=== PATIENT | female | born 1970 | race Caucasian/White ===

== ENCOUNTER 2025-05-28 02:34 | Emergency (ER) | payer OTHER ==
[2025-05-28 03:17] LABS: Absolute Lymphocytes (CBC) 1.7 K/uL (0.7-4.9); Hematocrit 38.0 % (36.0-45.0); Hemoglobin 13.0 g/dL (12.0-15.0); MCH 29.3 pg (27.0-35.0); MCHC 34.2 g/dL (32.0-36.0); MCV 85.7 fL (80-100); MPV 7.1 fL (7.6-11.3); Nucleated RBC Absolute Count 0.0 (0-0); Nucleated Red Blood Cells % 0.1 % (0-0); RBC Red Blood Cell Count 4.43 M/uL (3.86-4.86); White Blood Count 9.60 thou/uL (4.3-10.9)
[2025-05-28 03:27] LABS: PT Prothrombin Time 12.3 SECONDS (10-13.0); PTT, Activated Partial Thromb 53.8 SECONDS (27.2-37.4); Protime INR 1.09
[2025-05-28 03:35] LABS: ALT/SGPT 18 U/L (13-56); AST/SGOT 13 U/L (15-37); Albumin 3.4 g/dL (3.4-5.0); Albumin/Globulin Ratio 0.9 (1.1-1.8); Alkaline Phosphatase 58 U/L (45-117); Anion Gap 7.3 mEq/L (5.0-15.0); BUN Blood Urea Nitrogen 10 mg/dL (7-18); Bilirubin Indirect, Calculated 0.4 mg/dL (0.2-0.8); Globulin 3.7 g/dL (2.3-3.5); Glucose Level 85 mg/dL (74-106); Potassium 3.3 mEq/L (3.5-5.1)
[2025-05-28 03:57] LABS: METHAMPHETAM NEGATIVE (NEGATIVE); THC Cannibis NEGATIVE (NEGATIVE)
--- NOTE | 2025-05-28 04:26 | ER ---
Nurse's Notes [facility] Name: Valarie Gonzalez Age: 54 yrs Sex: Female : 1970 Arrival Date: 05/28/2025 Time: 02:34 Bed 17 Private MD: Diagnosis: Suicidal ideations Presentation: 05/28 02:35 Chief complaint: EMS states: EMS initially toned out for "not feeling well." Upon EMS kd4 assessment, patient experiencing manic highs and lows, stating she "wants to stand up and run into traffic.". 02:35 Coronavirus screen: At this time, the client does not indicate any symptoms associated kd4 with coronavirus-19. Ebola Screen: No symptoms or risks identified at this time. Risk Assessment: Do you want to hurt yourself or someone else? Patient reports desire/thoughts of hurting themselves or someone else. Provider notified. Onset of symptoms was May 28, 2025. 02:35 Method Of Arrival: EMS: [facility] kd4 02:35 Acuity: SONNY 2 kd4 02:35 Initial Sepsis Screen: Does the patient meet any 2 criteria? No. Patient's initial kd4 sepsis screen is negative. Does the patient have a suspected source of infection? No. Patient's initial sepsis screen is negative. Triage Assessment: 02:35 General: Appears distressed, comfortable, Behavior is cooperative, manic high, kd4 hyperverbal. Pain: Complains of pain in generalized. EENT: No signs and/or symptoms were reported regarding the EENT system. Neuro: Level of Consciousness is awake, alert, obeys commands, Oriented to person, place, time, situation. Cardiovascular: Capillary refill < 3 seconds Patient's skin is warm and dry. Respiratory: Airway is patent Respiratory effort is even, unlabored, Respiratory pattern is regular, symmetrical. GI: No signs and/or symptoms were reported involving the gastrointestinal system. : No signs and/or symptoms were reported regarding the genitourinary system. Derm: Rash noted that is red, on groin and left leg Reports rash to perianal area and bilateral inner thighs due to laundry detergent. Musculoskeletal: Circulation, motion, and sensation intact. Range of motion: intact in all extremities. 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 - Infectious Disease History:: Denies. - Social history:: Smoking status: Patient reports the use of cigarette tobacco products, smokes one pack cigarettes per day. Screenin:35 [facility] ED Fall Risk Assessment (Adult) History of falling in the last 3 months, kd4 including since admission No falls in past 3 months (0 pts) Confusion or Disorientation No (0 pts) Intoxicated or Sedated No (0 pts) Impaired Gait No (0 pts) Mobility Assist Device Used No (0 pt) Altered Elimination No (0 pt) Score/Fall Risk Level 0 - 2 = Low Risk Oriented to surroundings, Maintained a safe environment, Hourly rounding (assess needs \\T\\ fall precautionary measures) done. 02:35 Abuse screen: Denies threats or abuse. Denies injuries from another. Nutritional kd4 screening: No deficits noted. Tuberculosis screening: No symptoms or risk factors identified. Assessment: 02:35 Reassessment: see triage assessment. kd4 03:17 Reassessment: No changes from previously documented assessment. Patient and/or family kd4 updated on plan of care and expected duration. Pain level reassessed. Patient is alert, oriented x 3, equal unlabored respirations, skin warm/dry/pink. 04:05 General: Patient in bed sleeping, sitter at bedside. kd4 06:07 General: Patient in bed sleeping, sitter at bedside.. kd4 06:37 General: Report Given to [facility] doctor [facility] kd4 is Yonny 07:04 General: Gus made aware of perineal rash. kd4 07:05 General: Hand off given to CARLOS ENRIQUE Gomez/ CARLOS ENRIQUE Lara. kd4 07:15 General: Assumed care of patient at this time. Pt resting comfortably. Updated on plan cm10 of care. Pt A\\T\\Ox4 at this time. Pt denying any SI. . Psych: 03:19 [place] Suicide Severity Screening: In the past month, have you wished you were kd4 or wished you could go to sleep and not wake up? Patient responds "yes." "In the past month, have you actually had any thoughts of killing yourself?" Patient responds "yes." "In your lifetime, have you ever done anything, started to do anything, or prepared to do anything to end your life?" Patient responds "yes." Patient reports suicidal intent occurred greater than 3 months prior. Subjective: Patient's mood is elevated, Delusions are denied, Hallucinations are denied Having thoughts of suicide. Objective: Patient is cooperative, hyperactive and hyperverbal Speech is normal, loud, Affect is appropriate. Interventions: Removed personal items and placed in bag. Searched person for dangerous items. Urine collected and sent for urine drug test. Belonging list filled out. Safety Checks: Personal items have been removed. Door is open. Pt denies substance abuse. Commitment: Patient will be a voluntary commitment. Vital Signs: 02:35 BP 98 / 63; Pulse 59; Resp 20; Temp 98.3; Pulse Ox 99% on R/A; Weight 80.74 kg; Height kd4 5 ft. 0 in. ; 07:25 BP 115 / 72; Pulse 51; Resp 16; Temp 97; Pulse Ox 96% on R/A; af3 02:35 Body Mass Index 34.76 (80.74 kg, 152.4 cm) kd4 ED Course: 02:35 Patient arrived in ED. kd4 02:35 Arm band placed on right wrist. Patient placed in the treatment room, in view of staff 4 members, on pulse oximetry. 02:35 Patient has correct armband on for positive identification. Bed in low position. Call kd4 light in reach. Side rails up X2. Valuables inventory done. Locked in safe. See valuables checklist. Provided Education on: plan of care. 02:41 Bill Bauman DO is Attending Physician. tt7 02:47 Assisted provider with: perianal inspection, patient c/o burning sensation to perianal al5 area after patients clothes were washed with detergent. 02:52 Viktor Sweet, CARLOS ENRIQUE is Primary Nurse. kd4 03:00 Inserted saline lock: 20 gauge in right antecubital area, using aseptic technique. kd4 Blood collected. Flushed with 10 mL NS. 03:05 Triage completed. kd4 07:30 Report given to Leonel with [facility] who assumes care of patient. cm10 07:30 IV discontinued, intact, bleeding controlled, No redness/swelling at site. Pressure cm10 dressing applied. Administered Medications: 03:33 Drug: Droperidol IVP 2.5 mg IVP once Route: IVP; Site: right antecubital; kd4 05:34 Follow up: Response: No adverse reaction kd4 07:04 Not Given (NOT AVAILABLEe): hydrocortisone Cream 0.2 % 1 application Topical once kd4 Medication: 02:35 VIS not applicable for this client. kd4 Outcome: 04:26 ER care complete, transfer ordered by . tt7 07:30 Transferred by ground EMS [facility]. to other acute care facility: [address] 07:30 Condition: stable 07:30 Instructed on the need for transfer, 07:36 Patient left the ED. cm10 Signatures: Patricia Hammond RN RN cm10 Viktor Sweet RN RN kd4 Gricelda cMcord RN RN al5 Jane Leavitt RN RN af3 Bill Bauman, DO tt7 Corrections: (The following items were deleted from the chart) 03:26 02:35 Derm: Rash noted that is red, on groin and left leg Reports rash to perianal area al5 and bilateral inner thighs kd4
--- NOTE | 2025-05-28 04:26 | EDPHYS ---
Physician Documentation [facility] Name: Valarie Gonzalez Age: 54 yrs Sex: Female : 1970 Arrival Date: 05/28/2025 Time: 02:34 Bed 17 Private MD: ED Physician Bill Bauman HPI: 05/28 05:51 This 54 yrs old Female presents to ER via EMS with complaints of Suicidal Ideation. tt7 05:51 Patient reports suicidal ideations with plans to break both of her legs, she reports tt7 history of past suicidal ideation with plan to starving herself to . She has past history of depression, schizoaffective disorder, bipolar disorder. She denies homicidal ideations. She denies auditory or visual hallucinations. She denies alcohol or drug abuse. 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 - Infectious Disease History:: Denies. - Social history:: Smoking status: Patient reports the use of cigarette tobacco products, smokes one pack cigarettes per day. ROS: 05:52 Constitutional: negative for fever. Cardiovascular: negative for chest pain. tt7 Respiratory: negative for shortness of breath. Abdomen/GI: negative for abdominal pain, nausea, vomiting, diarrhea. MS/Extremity: negative for injury and deformity. Neuro: negative for focal weakness. Exam: 05:52 Constitutional: vital signs reviewed, well appearing. Head/Face: normocephalic, tt7 atraumatic. Eyes: no conjunctival injection, anicteric sclerae. ENT: mucus membranes moist. Neck: trachea midline, no JVD, no meningismus. Cardiovascular: regular rate and rhythm, no murmurs, no rubs, no lower extremity edema. Respiratory: normal respiratory effort, no accessory muscle use, lungs CTAB. Abdomen/GI: soft, nondistended, nontender, no guarding or rebound, negative Ayala's sign, no McBurney point tenderness. Back: normal ROM. MS/ Extremity: normal ROM of extremities, no gross deformities. Neuro: alert and oriented with appropriate mental status, normal speech, follows commands, no focal neurologic deficits. 05:52 Psych: Behavior/mood is cooperative, Affect is animated, Oriented to person, place, time, Patient having thoughts of suicide. Judgement / Insight is impaired. Memory is normal. Delusions/hallucinations are not present. Vital Signs: 02:35 BP 98 / 63; Pulse 59; Resp 20; Temp 98.3; Pulse Ox 99% on R/A; Weight 80.74 kg; Height kd4 5 ft. 0 in. ; 07:25 BP 115 / 72; Pulse 51; Resp 16; Temp 97; Pulse Ox 96% on R/A; af3 02:35 Body Mass Index 34.76 (80.74 kg, 152.4 cm) kd4 MDM: 02:41 Medical Screening Exam initiated tt7 05:53 Differential diagnosis: drug withdrawal. acute psychotic break, depression, psychosis tt7 secondary to non-compliance. Data reviewed: vital signs, nurses notes, lab test result(s), Beta HCG: CBC, drug level(s), acetaminophen, alcohol, salicylate, electrolytes, hepatic panel, urine drug screen, EKG. I considered the following discharge prescriptions or medication management in the emergency department Antibiotics: At this time antibiotics are not recommended, Pain Medications: At this time, prescription pain medications are not recommended, Medications were administered in the Emergency Department. See MAR. Care significantly affected by the following chronic conditions: Depression, schizoaffective disorder, bipolar disorder. Counseling: I had a detailed discussion with the patient and/or guardian regarding the historical points, exam findings, and any diagnostic results supporting the discharge/admit diagnosis, lab results, the need to transfer to another facility. ED course: 54-year-old female with suicidal ideation with a plan, vital signs are stable, standard toxicology workup ordered, no acute abnormalities requiring further evaluation or treatment, patient was administered 2.5 mg of IV droperidol to help with her anxiety, I reassessed the patient approximately 20 minutes after his medication was administered, she responded well and was sleeping comfortably in bed, patient medically stable for psychiatric placement, placement was found at [facility] which will be transferred there in stable condition. I have reviewed and independently interpreted the patient's EKG performed on 05/28/2025 at 0315. On my interpretation, sinus bradycardia, ventricular rate 55 bpm, normal axis, normal QRS interval, normal ST segments, no STEMI. 05/28 02:52 Order name: Acetaminophen; Complete Time: 04:03 05/28 02:52 Order name: Basic Metabolic Panel; Complete Time: 04:03 05/28 02:52 Order name: CBC with Diff; Complete Time: 04:03 05/28 02:52 Order name: ETOH Level; Complete Time: 04:03 05/28 02:52 Order name: Hepatic Function; Complete Time: 04:03 05/28 02:52 Order name: PT-INR; Complete Time: 04:03 05/28 02:52 Order name: Ptt, Activated; Complete Time: 04:03 05/28 02:52 Order name: Salicylate; Complete Time: 04:03 05/28 02:52 Order name: Urine Drug Screen; Complete Time: 04:03 05/28 02:52 Order name: Test, Serum; Complete Time: 04:03 05/28 02:52 Order name: EKG; Complete Time: 02:53 05/28 02:52 Order name: EKG - Nurse/Tech; Complete Time: 05:35 05/28 02:52 Order name: IV Saline Lock; Complete Time: 03:22 05/28 02:52 Order name: Labs collected and sent; Complete Time: 03:22 05/28 02:52 Order name: Suicide Screening ([place]); Complete Time: 03:22 tt7 Administered Medications: 03:33 Drug: Droperidol IVP 2.5 mg IVP once Route: IVP; Site: right antecubital; kd4 05:34 Follow up: Response: No adverse reaction kd4 07:04 Not Given (NOT AVAILABLEe): hydrocortisone Cream 0.2 % 1 application Topical once kd4 Disposition: 05:58 Co-signature as Attending Physician, Bill Bauman DO. tt7 Disposition Summary: 05/28/25 04:26 Transfer Ordered Notes: Transfer Location: [facility] tt7 Reason: Specialty tt7 Condition: Stable tt7 Problem: an acute exacerbation tt7 Symptoms: have improved tt7 Accepting Physician: [facility](05/28/25 07:36) cm10 Diagnosis - Suicidal ideations tt7 Forms: - Medication Reconciliation Form tt7 - SBAR form tt7 Signatures: Dispatcher [employer] EDMS Patricia Hammond, RN RN cm10 Viktor Sweet RN RN kd4 Bill Bauman, DO tt7 Corrections: (The following items were deleted from the chart) 02:53 02:53 ACETAMINOPHEN+C.LAB.BRZ ordered. EDMS EDMS 02:53 02:53 BASIC METABOLIC PANEL+C.LAB.BRZ ordered. EDMS EDMS 02:53 02:53 CBC+H.LAB.BRZ ordered. EDMS EDMS 02:53 02:53 ETHANOL+C.LAB.BRZ ordered. EDMS EDMS 02:53 02:53 HEPATIC FUNCTION+C.LAB.BRZ ordered. EDMS EDMS 02:53 02:53 PROTIME (+INR)+COAG.LAB.BRZ ordered. EDMS EDMS 02:53 02:53 PTT, ACTIVATED+COAG.LAB.BRZ ordered. EDMS EDMS 02:53 02:53 SALICYLATE+C.LAB.BRZ ordered. EDMS EDMS 02:53 02:53 URINE DRUG SCREEN+UC.LAB.BRZ ordered. EDMS EDMS 02:53 02:53 TEST, SERUM+SC.LAB.BRZ ordered. EDMS EDMS 05:58 04:26 tt7 tt7 07:36 05:58 [facility] tt7 cm10
[2025-05-28 07:55] VITALS: BP 115/72; TEMP 97; O2SAT 96
== END 2025-05-28 07:36 ==
LOC: ER 02:34
DX: R45.851 Suicidal ideations (principal); F25.9 Schizoaffective disorder, unspecified; F17.210 Nicotine dependence, cigarettes, uncomplicated
CPT/HCPCS: 93005; 85025; 80048; 36415; 84703; 85610; 80076; 85730; 80307; 96374; 99285; 80143; 80179; 82077; J1790

== ENCOUNTER 2025-06-12 20:41 | Emergency (ER) | payer OTHER ==
[2025-06-12 21:58] LABS: Absolute Lymphocytes (CBC) 2.0 K/uL (0.7-4.9); Hematocrit 34.3 % (36.0-45.0); Hemoglobin 11.9 g/dL (12.0-15.0); MCH 30.0 pg (27.0-35.0); MCHC 34.7 g/dL (32.0-36.0); MCV 86.4 fL (80-100); MPV 7.3 fL (7.6-11.3); Nucleated RBC Absolute Count 0.0 (0-0); Nucleated Red Blood Cells % 0.2 % (0-0); RBC Red Blood Cell Count 3.98 M/uL (3.86-4.86); White Blood Count 8.40 thou/uL (4.3-10.9)
[2025-06-12 22:12] LABS: PT Prothrombin Time 12.5 SECONDS (10-13.0); PTT, Activated Partial Thromb 54.7 SECONDS (27.2-37.4); Protime INR 1.11
[2025-06-12 22:14] LABS: ALT/SGPT 17 U/L (13-56); AST/SGOT 11 U/L (15-37); Albumin 3.1 g/dL (3.4-5.0); Albumin/Globulin Ratio 0.9 (1.1-1.8); Alkaline Phosphatase 62 U/L (45-117); Anion Gap 6.5 mEq/L (5.0-15.0); BUN Blood Urea Nitrogen 10 mg/dL (7-18); Globulin 3.5 g/dL (2.3-3.5); Glucose Level 92 mg/dL (74-106); Potassium 3.5 mEq/L (3.5-5.1)
[2025-06-12 22:16] LABS: Bilirubin Indirect, Calculated 0.1 mg/dL (0.2-0.8)
[2025-06-12 23:58] LABS: METHAMPHETAM NEGATIVE (NEGATIVE); THC Cannibis NEGATIVE (NEGATIVE)
--- NOTE | 2025-06-13 03:11 | ER ---
Nurse's Notes [facility] Name: Valarie Gonzalez Age: 55 yrs Sex: Female : 1970 Arrival Date: 06/12/2025 Time: 20:41 Bed IW10 Private MD: Diagnosis: Suicidal ideations Presentation: 06/12 20:53 Chief complaint: Patient states: pt reports feeling "super stressed" and is currently kb4 having thoughts of self harm today, reports unwitnessed seizer "this afternoon". Coronavirus screen: At this time, unable to obtain information related to travel outside the [place] Ebola Screen: No symptoms or risks identified at this time. Initial Sepsis Screen: Does the patient meet any 2 criteria? No. Patient's initial sepsis screen is negative. Does the patient have a suspected source of infection? No. Patient's initial sepsis screen is negative. Risk Assessment: Do you want to hurt yourself or someone else? Patient reports desire/thoughts of hurting themselves or someone else. Provider notified. Onset of symptoms was June 12, 2025. 20:53 Method Of Arrival: EMS: [facility] kb4 20:53 Acuity: SONNY 2 kb4 Triage Assessment: 20:56 General: Appears in no apparent distress. comfortable, Behavior is calm, cooperative. kb4 Pain: Denies pain. 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 - Infectious Disease History:: Denies. 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 - Family history:: not pertinent. Screenin:58 [facility] ED Fall Risk Assessment (Adult) History of falling in the last 3 months, kb4 including since admission No falls in past 3 months (0 pts) Confusion or Disorientation No (0 pts) Intoxicated or Sedated No (0 pts) Impaired Gait No (0 pts) Mobility Assist Device Used No (0 pt) Altered Elimination No (0 pt) Score/Fall Risk Level 0 - 2 = Low Risk. Abuse screen: Denies threats or abuse. Denies injuries from another. Nutritional screening: No deficits noted. Tuberculosis screening: No symptoms or risk factors identified. Assessment: 20:57 Reassessment: all items removed from room, all pt belonging logged and set at nursing kb4 station, pt placed in paper scrubs. Neuro: Level of Consciousness is awake, alert, obeys commands, Oriented to person, place, time, situation. Cardiovascular: Patient's skin is warm and dry. Respiratory: Airway is patent Respiratory effort is even, unlabored, Respiratory pattern is regular, symmetrical. GI: Abdomen is round. : No signs and/or symptoms were reported regarding the genitourinary system. EENT: No signs and/or symptoms were reported regarding the EENT system. Derm: No signs and/or symptoms reported regarding the dermatologic system. Musculoskeletal: No signs and/or symptoms reported regarding the musculoskeletal system. 22:12 Reassessment: see ppwk. kb4 06/13 00:08 Reassessment: Patient appears in no apparent distress at this time. Pt resting vc1 comfortably, sitter at bedside. 00:59 General: Appears in no apparent distress. Behavior is calm, cooperative. Pain: Denies tb4 pain. Neuro: Level of Consciousness is awake, alert, obeys commands, Oriented to person, place, time, situation, Moves all extremities. Full function Gait is steady, Speech is normal, Facial symmetry appears normal. Respiratory: Airway is patent Respiratory effort is even, unlabored, Respiratory pattern is regular, symmetrical. GI: No signs and/or symptoms were reported involving the gastrointestinal system. : No signs and/or symptoms were reported regarding the genitourinary system. EENT: No signs and/or symptoms were reported regarding the EENT system. Derm: No signs and/or symptoms reported regarding the dermatologic system. Skin is intact, is healthy with good turgor, Skin is dry, Skin is normal. Musculoskeletal: No signs and/or symptoms reported regarding the musculoskeletal system. Circulation, motion, and sensation intact. Range of motion: intact in all extremities. 01:46 Reassessment: Gave report to Janet at [facility] in [place], [place]. She tb4 will follow up with acceptance or denial. If patient is accepted the earliest she could leave is morning. 02:26 Reassessment: Report given to Philip at [facility]. MOT will be given to unit tb4 security. Psych: 06/12 20:45 [place] Suicide Severity Screening: In the past month, have you wished you were kb4 or wished you could go to sleep and not wake up? Patient responds "yes." Based off the client's responses additional C-SSRS screening is required. "In the past month, have you actually had any thoughts of killing yourself?" Patient responds "yes." Based off the client's response additional [place] suicide severity screening questions to be further documented on paper forms. "In your lifetime, have you ever done anything, started to do anything, or prepared to do anything to end your life?" Patient responds "yes." Patient reports suicidal intent occurred greater than 3 months prior. Subjective: Patient's mood is sad, hopeless, Delusions are denied, Hallucinations are denied Having thoughts of suicide. Objective: Patient is cooperative, using poor eye contact, Speech is normal, Affect is appropriate. Interventions: Removed personal items and placed in bag. Patient placed in hospital gown. Searched person for dangerous items. Belonging list filled out. Patient reassessed during use of restraints. Patient is physically safe. Patient's cardiac status is stable. Patient's respirations are even and unlabored. Patient has good circulation in all extremities as indicated by capillary refill < 3 seconds. Patient's ROM assessed and is intact. Patient nutrition and hydration needs will continue to be monitored and addressed. Patient hygiene and elimination needs met. Patient assessed for signs of distress. Patient remains reasonably comfortable at this time. Assisted patient in de-escalation of behavior by removing stimuli causing behavior where possible. Restraints continue to be necessary for patient and staff safety. Safety Checks: Personal items have been removed. Pt has been placed in a hallway bed/chair. No visitors are present at this time. Patient uses tobacco Frequency daily. Commitment: Patient will be a voluntary commitment. 06/13 01:08 [place] Suicide Severity Screening: In the past month, have you wished you were tb4 or wished you could go to sleep and not wake up? Patient responds "yes." "In the past month, have you actually had any thoughts of killing yourself?" Patient responds "yes." "In your lifetime, have you ever done anything, started to do anything, or prepared to do anything to end your life?" Patient responds "no.". Subjective: Patient's mood is sad, Delusions are denied, Hallucinations are denied Having thoughts of suicide. Plan for suicide is To take a bunch of pills. Objective: Patient is cooperative, Speech is normal, Affect is appropriate. Interventions: Removed personal items and placed in bag. Patient placed in hospital gown. Searched person for dangerous items. Belonging list filled out. Patient reassessed during use of restraints. Patient is physically safe. Patient's cardiac status is stable. Patient's respirations are even and unlabored. Patient has good circulation in all extremities as indicated by capillary refill < 3 seconds. Patient's ROM assessed and is intact. Patient nutrition and hydration needs will continue to be monitored and addressed. Patient hygiene and elimination needs met. Patient assessed for signs of distress. Patient remains reasonably comfortable at this time. Assisted patient in de-escalation of behavior by removing stimuli causing behavior where possible. Safety Checks: Personal items have been removed. Pt has been placed in a hallway bed/chair. No visitors are present at this time. Vital Signs: 06/12 20:53 BP 96 / 64; Pulse 66; Resp 18; Temp 98.6; Pulse Ox 96% ; Weight 81.65 kg; Height 5 ft. kb4 1 in. ; Pain 0/10; 06/13 01:36 BP 101 / 67; Pulse 71; Resp 19; Pulse Ox 99% on R/A; Pain 0/10; tb4 06/12 20:53 Body Mass Index 34.01 (81.65 kg, 154.94 cm) kb4 06/12 20:53 Pain Scale: Adult kb4 06/13 01:36 Pain Scale: Adult tb4 Brayden Coma Score: 20:05 Eye Response: spontaneous(4). Motor Response: obeys commands(6). Verbal Response: sp4 oriented(5). Total: 15. ED Course: 06/12 20:43 Patient arrived in ED. al5 20:52 Elmira Miles, CARLOS ENRIQUE is Primary Nurse. kb4 20:55 Triage completed. kb4 20:56 Arm band placed on. EKG completed in triage. Results shown to MD. kb4 20:58 Geo Blankenship MD is Attending Physician. sp4 20:58 Safety Checks: Personal items have been removed. The door is open or patient has been kb4 placed in a hallway bed/chair. There are no family/friend visitors at this time Sitter present at this time. 20:58 Patient has correct armband on for positive identification. Bed in low position. kb4 Valuables inventory done. moved to nursing station . Seizure precautions initiated. tech at bedside. Sitter at bedside. Patient is placed in psych hold. 21:20 EKG done, by ED staff, reviewed by Geo Blankenship MD. Inserted saline lock: 20 gauge oe in right antecubital area, using aseptic technique. Blood collected. Flushed with 10 mL NS. 21:42 No provider procedures requiring assistance completed. al5 23:25 Test, Urine Sent. vk 23:25 Urine Drug Screen Sent. vk 23:25 Urine collected: clean catch specimen, clear. vk 06/13 03:10 Provided Education on: transfer. cp4 03:10 Patient transferred, IV remains in place. cp4 Administered Medications: No medications were administered Medication: 06/12 21:42 VIS not applicable for this client. al5 Outcome: 06/13 03:08 Transferred by ground EMS Transfer form completed. X-rays sent w/ patient. Note: [facility] [place] Condition: stable Instructed on the need for transfer, 03:11 ER care complete, transfer ordered by MD. vc1 03:11 Patient left the ED. vc1 Signatures: Brandon Morrison Vanessa, RN RN vc1 Geo Blankenship MD MD sp4 Radha Burgess cp4 Jovana Haskins Amanda, RN RN al5 Elmira Miles RN RN kb4 Nimco Renteria RN RN tb4
--- NOTE | 2025-06-13 03:11 | EDPHYS ---
Physician Documentation [facility] Name: Valarie Gonzalez Age: 55 yrs Sex: Female : 1970 Arrival Date: 06/12/2025 Time: 20:41 Bed IW10 Private MD: ED Physician Geo Blankenship HPI: 06/12 20:58 This 55 yrs old Female presents to ER via EMS with complaints of Suicidal sp4 Ideation. 06/13 20:02 Patient presents with acuste onset suicidal ideation. Reports also possible seizure . . sp4 COOK MESS: 06/12 20:56 unknown kb4 Historical: - PMHx: 20:56 MENTAL HEALTH ISSUES; kb4 - Immunization history:: Adult Immunizations up to date. - Infectious Disease History:: Denies. 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 - Family history:: not pertinent. ROS: 06/13 20:05 Constitutional: Negative for fever, chills, and weight loss, Positive for suicidal sp4 ideation wtih plan. All other systems are negative, Exam: 20:05 Constitutional: This is a well developed, well nourished patient who is awake, alert, sp4 and in no acute distress. Head/Face: Normocephalic, atraumatic. Eyes: Pupils equal round and reactive to light, extra-ocular motions intact. Lids and lashes normal. Conjunctiva and sclera are not injected. Cornea within normal limits. Periorbital areas with no swelling, redness, or edema. ENT: Nares patent. No nasal discharge, no septal abnormalities noted. Tympanic membranes are normal and external auditory canals are clear. Oropharynx with no redness, swelling, or masses, exudates, or evidence of obstruction, uvula midline. Mucous membranes moist. Neck: Trachea midline, no thyromegaly or masses palpated, and no cervical lymphadenopathy. Supple, full range of motion without nuchal rigidity, or vertebral point tenderness. Chest/axilla: Normal chest wall appearance and motion. Nontender with no deformity. No lesions are appreciated. Cardiovascular: Regular rate and rhythm with a normal S1 and S2. No gallops, murmurs, or rubs. No pulse deficits. Respiratory: Lungs have equal breath sounds bilaterally, clear to auscultation and percussion. No rales, rhonchi or wheezes noted. No increased work of breathing, no retractions or nasal flaring. Abdomen/GI: Soft, with normal bowel sounds. No distension or tympany. No guarding or rebound. No evidence of tenderness throughout. Back: No spinal tenderness. No costovertebral tenderness. Skin: Warm, dry with normal turgor. Normal color with no rashes, no lesions, and no evidence of cellulitis. MS/ Extremity: Pulses equal, no cyanosis. Neurovascular intact. Full, normal range of motion. Neuro: Awake and alert, GCS 15, oriented to person, place, time, and situation. Cranial nerves II-XII grossly intact. Motor strength 5/5 in all extremities. Sensory grossly intact. Psych: Awake, alert, with orientation to person, place and time. Behavior, mood, and affect are within normal limits 20:05 ECG was reviewed by the Attending Physician. EKG at 2059 normal sinus rhythm normal EKG. Vital Signs: 06/12 20:53 BP 96 / 64; Pulse 66; Resp 18; Temp 98.6; Pulse Ox 96% ; Weight 81.65 kg; Height 5 ft. kb4 1 in. ; Pain 0/10; 06/13 01:36 BP 101 / 67; Pulse 71; Resp 19; Pulse Ox 99% on R/A; Pain 0/10; tb4 06/12 20:53 Body Mass Index 34.01 (81.65 kg, 154.94 cm) kb4 06/12 20:53 Pain Scale: Adult kb4 06/13 01:36 Pain Scale: Adult tb4 [place] Coma Score: 20:05 Eye Response: spontaneous(4). Motor Response: obeys commands(6). Verbal Response: sp4 oriented(5). Total: 15. MDM: 06/12 21:00 Medical Screening Exam initiated sp4 06/13 20:09 ED course: Additional diagnosis would include : Acute depression, suicidal ideation sp4 with plan, medication noncompliance. 20:10 Differential diagnosis: drug withdrawal. acute psychotic break, depression, psychosis sp4 secondary to non-compliance. Data reviewed: vital signs, nurses notes, EMS record, old medical records, lab test result(s), EKG. Consideration of Admission/Observation Escalation of care including admission/observation considered. Management of patient was discussed with the following: Grinder Set Up Operator Jig: Discussed with [facility] hospital. 06/12 21:00 Order name: Acetaminophen; Complete Time: 00:51 sp4 06/12 21:00 Order name: Basic Metabolic Panel; Complete Time: 00:51 sp4 06/12 21:00 Order name: CBC with Diff; Complete Time: 00:51 sp4 06/12 21:00 Order name: ETOH Level; Complete Time: 00:51 sp4 06/12 21:00 Order name: Hepatic Function; Complete Time: 00:51 sp4 06/12 21:00 Order name: PT-INR; Complete Time: 00:51 sp4 06/12 21:00 Order name: Test, Urine; Complete Time: 00:51 sp4 06/12 21:00 Order name: Ptt, Activated; Complete Time: 00:51 sp4 06/12 21:00 Order name: Salicylate; Complete Time: 00:51 sp4 06/12 21:00 Order name: Urine Drug Screen; Complete Time: 00:51 sp4 06/12 21:00 Order name: EKG; Complete Time: 21:01 sp4 06/12 21:00 Order name: EKG - Nurse/Tech; Complete Time: 21:42 sp4 06/12 21:00 Order name: IV Saline Lock; Complete Time: 21:41 sp4 06/12 21:00 Order name: Labs collected and sent; Complete Time: 21:41 sp4 06/12 21:00 Order name: Suicide Precautions; Complete Time: 21:42 sp4 06/12 21:00 Order name: Suicide Screening ([place]); Complete Time: 22:01 sp4 EC/07 20:59 Rate is 62 beats/min. Rhythm is regular, Normal Sinus Rhythm. QRS [place] is Normal. SC sp4 interval is normal. QRS interval is normal. QT interval is normal. No Q waves. T waves are Normal. No ST changes noted. Clinical impression: Normal ECG. Interpreted by me. Reviewed by me. Administered Medications: No medications were administered Disposition: 06/13 20:09 Chart complete. sp4 Disposition Summary: 06/13/25 03:11 Transfer Ordered Notes: Transfer Location: Other Acute Care Facility vc1 Reason: Higher level of care vc1 Condition: Stable vc1 Accepting Physician: Dr. Peoples at [facility](06/13/25 03:11) vc1 Diagnosis - Suicidal ideations vc1 Discharge Instructions: - Discharge Summary Sheet kmf Forms: - Medication Reconciliation Form vc1 - SBAR form kmf Signatures: Dispatcher [employer] Jamila Larkin RN RN vc1 Geo Blankenship MD MD sp4 Elmira Miles RN RN kb4 Corrections: (The following items were deleted from the chart) 03:11 03:11 Dr. Peoples at [facility] vc1 vc1
[2025-06-13 03:32] VITALS: TEMP 98.6
[2025-06-13 03:34] VITALS: BP 101/67; O2SAT 99
== END 2025-06-13 03:11 ==
LOC: ER 20:41
DX: R45.851 Suicidal ideations (principal)
CPT/HCPCS: 36415; 80048; 80076; 80143; 80179; 80307; 81025; 82077; 85025; 85610; 85730; 93005; 99285